=== PATIENT | female | born 1960 | race Two or more races ===

== ENCOUNTER → 2020-08-19 | Outpatient (CLI) | payer OTHER ==
--- NOTE | 2020-08-19 15:32 | RAD ---
EXAM: Cervical spine, 2 views; lumbar spine, 2 views. HISTORY: Pain. Disability determination. COMPARISON: None. FINDINGS: Cervical spine: 2 views of the cervical spine are obtained. There is minimal anterolisthesis of C4 on C5 and mild retrolisthesis of C5 on C6. There is degenerative endplate remodeling predominantly at C 5-C6 and C6-C7. There is slight disc space narrowing at these levels. There is multilevel facet arthr opathy. There is no fracture. Lumbar spine: 2 views of the lumbar spine are obtained. There is mild lumbar levoscoliosis centered a t L3. There is slight leftward lateral translation of L4 on L5. There is minimal grade 1 anterolisthe sis of L4 and L5, measuring 2 mm. There is mild multilevel endplate remodeling. There is facet arthro miguel predominantly at the mid lower lumbar levels. There are incidental cholecystectomy clips. IMPRESSION: 1. Multilevel degenerative change involving the cervical spine, predominantly at C5-C6 and C6-C7. 2. Multilevel degenerative change involving the lumbar spine, predominantly at the lower lumbar level s. Electronically signed by: Ayesha Lu MD (08/19/2020 3:30 PM) [facility]
== END ==
LOC: RAD 12:28
PROVIDERS: ATTEND Anesthesiology Pain Medicine
DX: M47.812 Spondylosis without myelopathy or radiculopathy, cervical region (principal); M47.816 Spondylosis without myelopathy or radiculopathy, lumbar region; M48.02 Spinal stenosis, cervical region; M43.16 Spondylolisthesis, lumbar region; M43.12 Spondylolisthesis, cervical region; M53.82 Other specified dorsopathies, cervical region; M41.86 Other forms of scoliosis, lumbar region; M12.88 Other specific arthropathies, not elsewhere classified, other specified site; Z90.49 Acquired absence of other specified parts of digestive tract
CPT/HCPCS: 72040; 72100